=== PATIENT | male | born 1965 | race Caucasian/White ===

== ENCOUNTER → 2021-05-27 10:24 | Outpatient (BNVA) | payer OTHER, SELFPAY | PROVIDERS: PCP Internal Medicine; Visit Provider Surgery Vascular Surgery ==

== ENCOUNTER 2021-06-16 13:49 | Outpatient (REF) | payer OTHER, SELFPAY ==
--- NOTE | ~2021-06-16 | US_ITS ---
EXAMINATION: NONINVASIVE ASSESSMENT OF THE ARTERIES OF BOTH LOWER EXTREMITIES WITH ANKLE PRESSURE MEASUREMENTS, ANKLE-BRACHIAL INDICES, PVR MEASUREMENTS AND BILATERAL LOWER EXTREMITY DUPLEX CLINICAL INFORMATION: Peripheral vascular disease. TECHNIQUE: Ankle pressure measurements, ankle brachial indices and PVR tracings were obtained of the lower extremity arterial system bilaterally. In addition, duplex Doppler techniques with wave form analysis and measurement of velocities in the common femoral, profunda femoral, superficial femoral, popliteal and tibial arteries was performed. The study was performed only at rest. COMPARISON: None FINDINGS: NONINVASIVE ASSESSMENT OF THE ARTERIES OF BOTH LOWER EXTREMITIES WITH ABIs: RIGHT LEG: Right ankle-brachial index: 0.69 PVR (ankle): Abnormal, dampened. LEFT LEG: Ankle-brachial index: 1.41 PVR (ankle): Abnormal, irregular and dampened. PT and DP pressures on the left are both greater than 200 mmHg. BILATERAL LOWER EXTREMITY DUPLEX ULTRASOUND: RIGHT LEG: Common femoral artery: 300 cm/s, Diastolic flow reversal: Yes Profunda femoris artery: 112 cm/s, Diastolic flow reversal: Yes Superficial femoral artery (proximal): 66.3 cm/s, Diastolic flow reversal: Yes Superficial femoral artery (mid): 131 cm/s, Diastolic flow reversal: Yes Superficial femoral artery (distal): 103 cm/s, Diastolic flow reversal: Yes Popliteal artery: 53.9 cm/s, Diastolic flow reversal: No Posterior tibial artery: 25.1 cm/s, Diastolic flow reversal: No Peroneal artery: Not visualized. Right bypass graft (mid SFA to distal calf) Inflow artery: 78 cm/s, biphasic flow. Proximal anastomosis: 22.9 m/s, monophasic flow. Proximal graft: 11.9 cm/s, monophasic flow. Mid graft: 26.9 cm/s, monophasic flow. Distal graft: Occluded. Distal anastomosis: Not visualized. Outflow artery: Not visualized. LEFT LEG: Common femoral artery: 146 cm/s, Diastolic flow reversal: Yes Profunda femoris artery: 183 cm/s, Diastolic flow reversal: Yes Superficial femoral artery (proximal): 157 cm/s, Diastolic flow reversal: Yes Superficial femoral artery (mid): 118 cm/s, Diastolic flow reversal: Yes Superficial femoral artery (distal): 99.7 cm/s, Diastolic flow reversal: Yes Popliteal artery: 87.9 cm/s, Diastolic flow reversal: Yes Posterior tibial artery: 29.3 cm/s, Diastolic flow reversal: Yes Peroneal artery: 215 cm/s, diastolic flow reversal: No US/US arterial duplex LE BI IMPRESSION: RIGHT LEG: DANIA 0.69 consistent with moderate peripheral arterial disease. Duplex ultrasound revealed increased velocity and monophasic flow within the common femoral artery consistent with a moderate hemodynamically significant stenosis. There is focally elevated velocity within the mid superficial femoral artery consistent with a mild hemodynamically significant stenosis. There is a bypass graft identified from the mid SFA to the distal calf which is patent proximally though appears distally occluded. LEFT LEG: DANIA 1.41, though likely artificially elevated as PT and DP pressures at the distal left lower extremity are greater than 200 mmHg. Duplex ultrasound increased velocity involving the left peroneal artery consistent with a moderate stenosis. No additional focal, hemodynamically significant stenoses identified by duplex within the left leg. DANIA Reference: - >0.97-1.25 = normal - no significant arterial disease - 0.75-0.96 = mild peripheral arterial disease - 0.5-0.74 = moderate peripheral arterial disease - <0.50 = severe peripheral arterial disease
== END 2021-06-16 13:50 | disposition home or self-care (01) ==
LOC: HO.US 13:49
PROVIDERS: PCP Internal Medicine; Visit Provider Surgery Vascular Surgery
DX: I73.9 Peripheral vascular disease, unspecified (principal)
CPT/HCPCS: 93923; 93925

== ENCOUNTER → 2021-07-08 13:01 | Outpatient (BNVA) | payer OTHER, SELFPAY | PROVIDERS: PCP Internal Medicine; Visit Provider Surgery Vascular Surgery ==

== ENCOUNTER → 2021-08-07 09:07 | Outpatient (BNVA) | payer OTHER, SELFPAY | PROVIDERS: PCP Internal Medicine; Visit Provider Surgery Vascular Surgery | DX: Z13.89 Encounter for screening for other disorder (principal) ==

== ENCOUNTER 2021-08-28 12:45 | Outpatient (RCR) | payer OTHER, SELFPAY ==
--- NOTE | ~2021-08-28 | XR_ITS ---
EXAMINATION: XR FOOT, RIGHT CLINICAL INFORMATION: Nonhealing wound COMPARISON: None TECHNIQUE: AP, lateral, and oblique views of the right foot. FINDINGS: There is evidence of transmetatarsal amputation. No fracture, dislocation or x-ray evidence of osteomyelitis is seen. There is soft tissue swelling at the amputation site. There are surgical clips projecting over the medial ankle. XR/XR foot RT min 3V IMPRESSION: Soft tissue swelling over the amputation site. No fracture or x-ray evidence of osteomyelitis seen.
== END 2021-11-13 14:40 | disposition home or self-care (01) ==
LOC: HO.WCC 12:45
PROVIDERS: PCP Internal Medicine; Visit Provider Physician Assistant
DX: Z09 Encounter for follow-up examination after completed treatment for conditions other than malignant neoplasm (principal); E11.51 Type 2 diabetes mellitus with diabetic peripheral angiopathy without gangrene; E11.40 Type 2 diabetes mellitus with diabetic neuropathy, unspecified; E11.610 Type 2 diabetes mellitus with diabetic neuropathic arthropathy; I10 Essential (primary) hypertension; Z86.718 Personal history of other venous thrombosis and embolism; Z89.421 Acquired absence of other right toe(s); Z86.31 Personal history of diabetic foot ulcer
CPT/HCPCS: 10060; 11042; 73630; 99212; 99213

== ENCOUNTER 2022-08-20 07:54 | Outpatient (RCR) | payer OTHER, SELFPAY ==
--- NOTE | ~2022-08-20 | XR_ITS ---
EXAMINATION: XR FOOT, RIGHT CLINICAL INFORMATION: Right plantar foot wound COMPARISON: Previous x-ray October 2021 TECHNIQUE: AP, lateral, and oblique views of the right foot. FINDINGS: Stable postoperative changes from transplant metatarsal amputation of the first through fifth toes. No fracture, dislocation or x-ray evidence of osteomyelitis. No foreign body or abnormal air collection in the soft tissues. Calcaneal spur and calcification of the at the Achilles tendon insertion. Medial surgical clips at the ankle. XR/XR foot RT min 3V IMPRESSION: Stable postsurgical changes. No evidence of fracture or osteomyelitis.
[2022-08-20 09:30] LABS: MANUAL DIFF FLAG NO
[2022-08-20 09:50] LABS: Basophils Absolute Auto 0.1 X10*3/uL (0.0-0.2); Basophils Percent Auto 0.5 % (0-2); Eosinophils Absolute Auto 0.1 X10*3/uL (0.0-0.4); Eosinophils Percent Auto 1.4 % (0-4); Hemoglobin 12.4 g/dl (14.0-18.0); Imm Gran Abs Auto 0.06 X10*3/uL (0.00-0.03); Imm Gran Pct Auto 0.6 % (0.0-0.4); Lymphocytes Absolute Auto 2.2 X10*3/uL (1.2-4.9); Lymphocytes Percent Auto 21.7 % (20-40); Mean Corpuscular Hemoglobin 25.1 pg (27.0-33.0); Mean Corpuscular Volume 80.8 fL (80.0-98.0); Mean Platelet Volume 9.9 fL (9.4-12.4); Monocytes Absolute Auto 0.9 X10*3/uL (0.1-1.2); Monocytes Percent Auto 8.6 % (2-11); Neutrophils Absolute Auto 6.7 x10*3/uL (2.0-8.3); Neutrophils Percent Auto 67.2 % (45-73); Platelet Count 455 X10*3/uL (160-400); Red Blood Count 4.95 X10*6/uL (4.60-5.80); Red Cell Distribution Width 13.5 % (11.0-16.0); White Blood Count 9.9 X10*3/uL (4.8-10.8)
[2022-08-20 10:10] LABS: Anion Gap 14 (12-20); Blood Urea Nitrogen 36 mg/dL (9-16); C Reactive Protein 2.08 mg/dL (< or = 0.50); Calcium 9.9 mg/dL (8.4-10.2); Carbon Dioxide 27 mmol/L (22-29); Chloride 104 mmol/L (96-108); Estimated Glomerular Filt Rate 37; Glucose Random 68 mg/dL (60-115); Potassium 4.7 mmol/L (3.3-5.1); Sodium 140 mmol/L (135-145)
[2022-08-20 10:28] LABS: Erythrocyte Sedimentation Rate 44 MM/HR (0-15)
== END 2023-07-01 17:00 | disposition home or self-care (01) ==
LOC: HO.WCC 07:54
PROVIDERS: PCP Internal Medicine; Visit Provider Surgery
DX: E11.621 Type 2 diabetes mellitus with foot ulcer (principal); L97.512 Non-pressure chronic ulcer of other part of right foot with fat layer exposed; I70.235 Atherosclerosis of native arteries of right leg with ulceration of other part of foot; E11.51 Type 2 diabetes mellitus with diabetic peripheral angiopathy without gangrene; E11.40 Type 2 diabetes mellitus with diabetic neuropathy, unspecified; M21.371 Foot drop, right foot; B36.9 Superficial mycosis, unspecified; I10 Essential (primary) hypertension; Z86.718 Personal history of other venous thrombosis and embolism; Z89.421 Acquired absence of other right toe(s); L03.032 Cellulitis of left toe
CPT/HCPCS: 11042; 11043; 29445; 36415; 73630; 80048; 84134; 85025; 85652; 86140; 97597; 99212; 99213

== ENCOUNTER 2023-02-01 08:20 | Outpatient (REF) | payer OTHER, SELFPAY | END 2023-02-01 08:21 | disposition home or self-care (01) | LOC: HO.US 08:20 | PROVIDERS: PCP Internal Medicine; Visit Provider Surgery | DX: Z13.89 Encounter for screening for other disorder (principal) ==

== ENCOUNTER 2023-02-18 13:24 | Outpatient (REF) | payer OTHER, SELFPAY ==
--- NOTE | ~2023-02-18 | US_ITS ---
EXAMINATION: Noninvasive assessment of the right lower extremities with ARTERIAL DUPLEX and ANKLE BRACHIAL INDICES (ABIs). CLINICAL INFORMATION: Peripheral arterial disease TECHNIQUE: Duplex Doppler techniques with waveform analysis and measurement of velocities in the right common femoral, profunda femoris, superficial femoral, popliteal and tibial arteries were performed. Additionally, ankle pulse volume recordings, ankle pressure measurements and ankle brachial indices were obtained of the lower extremity arterial system bilaterally. The study was performed only at rest. COMPARISON: Ultrasound from 06/16/2021 FINDINGS: DIRECT DUPLEX DOPPLER FINDINGS: RIGHT LEG: Common femoral artery: 402 cm/s, phasicity: Biphasic. Severe calcified plaque Profunda femoris artery: 173 cm/s, phasicity: Biphasic Superficial femoral artery (proximal): 131 cm/s, phasicity: Biphasic. Moderate calcified plaque Superficial femoral artery (mid): 130 cm/s, phasicity: Monophasic Superficial femoral artery (distal): 92.5 cm/s, phasicity: Monophasic Popliteal artery: 181 cm/s, phasicity: Monophasic Posterior tibial artery: 44.1 cm/s in the mid segment, phasicity: Monophasic. There is occlusion of the distal posterior tibial artery Peroneal artery: 89.0 cm/s, phasicity: Monophasic Anterior tibial artery: 48.3 cm/s, phasicity: Monophasic Dorsalis pedis artery: 55.0 cm/s, phasicity:Monophasic There is a mid superficial femoral artery to dorsalis pedis artery bypass graft which is occluded ANKLE-BRACHIAL INDEX: Right: 0.57, previously 0.69? Left: 0.89, previously 1.41 ANKLE PRESSURES: Right: PT 58, DP 95 Left: PT?123, DP?150 ANKLE PVR WAVEFORMS: Right: Abnormal Left: Abnormal US/US arterial duplex LE RT IMPRESSION: Right leg: Moderately decreased ankle brachial index and PVR waveform. Duplex ultrasound demonstrates elevated velocity in the common femoral artery consistent with a moderate to severe stenosis. Elevated velocity in the popliteal artery consistent with a moderate to severe stenosis. Dampened waveforms seen throughout the below-knee runoff vessels with distal occlusion of the posterior tibial artery. There is occlusion of a femoral to dorsalis pedis artery bypass graft Left leg: Mildly decreased ankle brachial index. DANIA Reference: - >1.4 = calcified vessels - 0.9 - 1.4 = normal - no significant arterial disease - 0.7 - 0.89 = mild peripheral arterial disease - 0.51 - 0.69 = moderate peripheral arterial disease - ? 0.50 = severe peripheral arterial disease - < .30 = critical arterial disease
== END 2023-02-18 13:25 | disposition home or self-care (01) ==
LOC: HO.US 13:24
PROVIDERS: PCP Internal Medicine; Referring Provider Surgery Vascular Surgery; Visit Provider Surgery
DX: I73.9 Peripheral vascular disease, unspecified (principal)
CPT/HCPCS: 93923; 93926